=== PATIENT | female | born 1990 | race African-American/Black ===

== ENCOUNTER 2025-06-16 19:08 | Emergency (ER) | payer OTHER ==
[2025-06-16 20:33] LABS: BHCG - Serum Negative (NEGATIVE); Pregs Control Background? CLEAR/WHITE (CLR/WHITE); Pregs Control Bar Appear? YES (CONTROL BAR)
[2025-06-16 20:39] LABS: ALT (SGPT) 24 U/L (Less than 34); AST (SGOT) 23 U/L (11-34); Albumin 3.9 g/dL (3.1-4.5); Alkaline Phosphatase 41 U/L (40-110); Anion Gap 14 mmol/L (10-20); BUN (Urea Nitrogen) 12 mg/dL (7.0-18.7); Bilirubin, Total 0.2 mg/dL (0.3-1.2); Calc. Creatinine Clearance 0 mL/min (70-130); Calcium 9.9 mg/dL (7.8-10.44); Carbon Dioxide 25 mmol/L (22-29); Chloride 102 mmol/L (98-107); Globulin 4.1 g/dL (2.4-3.5); Glucose 85 mg/dL (70-105); Potassium 3.9 mmol/L (3.5-5.1); Sodium 137 mmol/L (136-145)
[2025-06-16 20:41] LABS: #Basophils 0.06 10x3/uL (0.0-0.2); #Eosinophils 0.11 10x3/uL (0.0-0.5); #Monocytes 0.43 10x3/uL (0.0-1.1); #Neutrophils 6.02 10x3/uL (1.5-8.4); %Basophils 0.7 % (0.0-2.0); %Eosinophils 1.2 % (0.0-6.0); %Lymphocytes 25.9 % (18.0-47.0); %Monocytes 4.8 % (0.0-10.0); %Neutrophils 67.1 % (40.0-75.0); Hematocrit 40.3 % (34.9-44.5); Hemoglobin 11.1 g/dL (12.0-15.5); Mean Corpuscular Hemoglobin 20.9 pg (27.0-33.0); Mean Corpuscular Volume 75.9 fL (81.6-98.3); Red Blood Cell (RBC) Count 5.31 10x6/uL (3.90-5.03); White Blood Cell (WBC) Count 8.97 10x3/uL (3.5-10.5)
[2025-06-16 20:43] LABS: Troponin I Less than 0.010 ng/mL (< 0.028)
[2025-06-16 20:45] LABS: Platelet Count 313 10x3/uL (150-450)
== END 2025-06-16 20:53 | disposition home or self-care (01) ==
LOC: CSHERS 19:08
DX: E86.0 Dehydration (principal); R73.03 Prediabetes; Z79.84 Long term (current) use of oral hypoglycemic drugs
CPT/HCPCS: 36415; 80053; 84484; 84703; 85025; 93005; 99284